=== PATIENT | male | born 1980 | race Two or more races ===

== ENCOUNTER 2025-09-01 09:02 | Outpatient (AMB) | payer MEDICARE, MEDICAID, SELFPAY ==
--- NOTE | 2025-09-01 09:10 | A.OFFPC_ITS ---
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 Transferring care from [facility]. Medical records have been requested and have received. Health And Physical Education Teacher Required: No Funeral Car Chauffeur: Present Accompanied by: Mother Allergies thioridazine (From Mellaril) Allergy (Intermediate, Verified 09/01/25 09:46) Not effective ziprasidone (From Geodon) Allergy (Intermediate, Verified 09/01/25 09:46) Rash haloperidol (From Haldol) Adverse Reaction (Intermediate, Verified 09/01/25 09:46) Confusion quetiapine (From Seroquel) Adverse Reaction (Intermediate, Verified 09/01/25 09:46) combative risperidone (From Risperdal) Adverse Reaction (Intermediate, Verified 09/01/25 09:46) Confusion Medication List - Last Reconciled 09/01/25 by Tequila Xiong MD ascorbic acid (vitamin C) (Vitamin C With Jo Hips) 1,000 mg PO DAILY atorvastatin (Lipitor) 20 mg PO DAILY betamethasone dipropionate 0.05% appl topical clozapine 100 mg PO lamotrigine 75 mg PO DAILY lisinopril-hydrochlorothiazide 20-12.5 mg 2 tabs PO DAILY lorazepam 1 mg PO BEDTIME metformin 1,000 mg PO BID metoprolol succinate ER mg PO DAILY zinc 50 mg PO DAILY Tobacco use date assessed: 09/01/25 Dental Screening Dental Screen Date: 09/01/25 Did you have a dental visit in the last 12 months?: Yes Did you have a dental problem in the last 6 months where you did not have access to dental care?: No Was dental information given to patient?: Patient has dentist HPI HPI Comments History of Present Illness Details The patient is a 44 year old male with PMH of schizoaffective disease, gout, HTN, HLD, DM, overdose on prescription medicaiton presenting to establish primary care. He recently moved from [place] and had a prior primary care provider at the [facility] ([facility]). The patient has a history of schizoaffective disorder, bipolar type, diagnosed at age 19. He is followed by India Vu, a CPNP at [facility], for his psychiatric care. His psychiatric medications include clozapine, lorazepam, and lamotrigine, which was started two to three months ago for affective symptoms of anxiety and depression and has been effective. His medical history includes childhood hypertension, currently managed with two tablets of lisinopril-HCTZ 20-12.5 mg daily and metoprolol succinate 100 mg daily. He has a history of type 2 diabetes, which developed after starting Zyprexa, and is managed with metformin 1000 mg twice daily; his last HbA1c was 6.8%. He also has hypercholesterolemia treated with atorvastatin. Other medical history includes gout in the right great toe, with the last flare occurring about three months ago, which he treats with Tylenol. He has an unspecified skin condition on his hands that causes cracking and bleeding, for which he uses betamethasone cream as needed. The patient also has a history of metabolic syndrome. The patient has a significant history of medication overdose, including an overdose on hydroxyzine at age 20 and an intentional ingestion of 270 tablets of Tegretol at age 31, which required hospitalization and an induced coma. Due to this history, his mother keeps all his medications in a locked safe. He has no history of surgeries. His father recently from cardiovascular disease. [facility] Surgical History No pertinent past surgical history Family History (Reviewed 09/01/25 @ :00 by Tequila Xiong MD) Sister Mental health disorder Mother Mental health disorder Father Mental health disorder Social History (Reviewed 09/01/25 @ :00 by Tequila Xiong MD) Housing: House Alcohol intake: never Patient Tobacco Use Status: Never used Tobacco e-Cigarette/Vaping Use: Never Used Second Hand Smoke Exposure: No service: No Current occupational status: unemployed Cognitive needs: No Hearing needs: No Vision needs: Yes (Glasses) Questionnaire PHQ-9 Over the last 2 weeks, how often have you been bothered by any of the following problems? 1. Little interest or pleasure in doing things: more than half the days 2. Feeling down, depressed, or hopeless: nearly every day 3. Trouble falling or staying asleep, or sleeping too much: several days 4. Feeling tired or having little energy: not at all 5. Poor appetite or overeating: not at all 6. Feeling bad about yourself - or that you are a failure or have let yourself or your family down: more than half the days 7. Trouble concentrating on things, such as reading the newspaper or watching television: not at all 8. Moving or speaking so slowly that other people could have noticed. Or the opposite - being so fidgety or restless that you have been moving around a lot more than usual: not at all 9. Thoughts that you would be better off or of hurting yourself in some way: not at all Total score: 8 Depression Screening Interpretation: Positive (Follows with Psychiatry) Depression Screening Follow-up: In treatment Depression Screening Done: Yes Source: Developed by Drs. Ramos Rocha, Mellisa Jay, Sourav Hankins and colleagues, with an educational kaiser from [employer]. Thrive Questionnaire Date Thrive assessed: 07/17/25 I am a: Patient What is your living situation today?: I have a steady place to live Within the past 12 months, did the food you bought not last and you didn't have the money to get more?: Never true Within the past 12 months, did you worry whether your food would run out before you got money to buy more?: Never true Do you have trouble paying for medicines?: No Do you have trouble getting transportation to medical appointments?: No Do you have trouble paying your heating and electricity bill?: No Do you have trouble taking care of your child, family member or friend?: No Do you have trouble with day-to-day activities such as bathing, preparing meals, shopping, managing finances, etc.?: No Are you currently unemployed and looking for a job?: Yes Are you interested in more education?: No Currently or been in a relationship where the following occur: No concerns reported THRIVE Score: 0 AUDIT C Alcohol Use Questionnaire (AUDIT-C) 1. How often do you have a drink containing alcohol?: Never Total Score: 0 MORGAN-7 AMB Questionnaire MORGAN-7 Date MORGAN - 7 assessed: 09/01/25 Feeling nervous, anxious, or on edge: 0 = Not at all Not being able to stop or control worryin = Not at all Worrying too much about different things: 0 = Not at all Trouble relaxin = Not at all Being so restless that it is hard to sit still: 0 = Not at all Becoming easily annoyed or irritable: 0 = Not at all Feeling afraid as if something awful might happen: 0 = Not at all Total MORGAN-7 score (0-4 normal; 5-9 mild; 10-14 moderate; 15-21 severe): 0 Source: Developed by Drs. Ramos Rocha, Mellisa Jay, Sourav Hankins and colleagues, with an educational kaiser from [employer]. Review of Systems Const Details: As per HPI. Physical exam (Primary Care) Vital Signs: Last Vital Signs Temp 97.3 F 09/01/25 09:11 Pulse 99 09/01/25 09:11 BP 120/64 09/01/25 09:11 Pulse Ox 98 09/01/25 09:11 Oxygen Delivery Method Room Air 09/01/25 09:11 BMI result Body Mass Index 36.3 Tobacco/Smoking Status: Tobacco use Status Tobacco use date assessed 09/01/25 09/01/25 09:14 Patient Tobacco Use Status Never used Tobacco 09/01/25 09:14 e-Cigarette/Vaping Use Never Used 09/01/25 09:14 PHQ-9: PHQ-9 Score PHQ-9: Total score 8 09/01/25 09:58 Depression Screening Interpretation: Positive (Follows with Psychiatry) Depr ession Screening Follow-up: In treatment Thrive Assessment: Date of Thrive Assessment Date Thrive assessed 07/17/25 09/01/25 09:14 Currently or been in a relationship where the following occur: No concerns reported Const Other: Pertinent findings are in BOLD GENERAL APPEARANCE NAD, activity normal for age, well developed/ well nourished, no cyanosis, pallor, or diaphoresis. EYES lids/conjunctiva normal. EARS/NOSE/THROAT Mucous membranes moist, nares normal, lips/teeth normal uvula midline without oral pharyngeal erythema, exudate or swelling TMs normal bilaterally. No lymphangitis/lymphedema. HEAD/NECK normocephalic atraumatic, no facial trauma, neck is supple. RESPIRATORY respiratory effort normal, speaks in full sentences, no tripod position, no accessory muscle use. Lungs clear to auscultation without rhonchi, wheezes, rales CARDIAC Regular rate and rhythm, no edema. ABDOMINAL Soft, ND/NT. No evidence of fluid wave. No pulsatile masses on exam, rebound tenderness, Boston sign or pain over Mcburney's point. MUSCLES/EXTREMITIES No abnormal range of motion, no swelling. SKIN Warm, pink and dry. No rashes, dermatoses, petechiae or lesions. NEUROLOGICAL Speech is clear and appropriate. Normal level of consciousness. Gait and coordination are normal. 5/5 strength in all extremities. PSYCH Normal mood and affect. Judgement/competence is appropriate Results AMB Hemoglobin A1c AMB Hemoglobin A1c 6.8 % Last Edit by MARIA E Tomlin on 09/01/25 09:52 Results Reviewed Results Reviewed: Laboratory Last Values Hgb A1c (Clinic) 6.8 % (4.0-6.0) H 09/01/25 09:39 Coding Level of Care Code New Pt Level 4 (41516) Diagnoses Type 2 diabetes mellitus without complication, without long-term current use of insulin E11.9 Diabetes mellitus type: type 2 Diabetes mellitus termite control service representative insulin use: without fpc use Diabetes mellitus complication status: without complication Primary hypertension I10 Hypertension type: primary hypertension Schizoaffective disorder F25.9 Encounter to establish care Z76.89 Gout M10.9 HLD (hyperlipidemia) E78.5 History of drug overdose Z91.89 Dermatitis L30.9 Time Spent (min) 45 Assessment & Plan Assessment & Plan (1) Diabetes mellitus: Code(s): E11.9 - Type 2 diabetes mellitus without complications Category: Medical Qualifiers: Diabetes mellitus type: type 2 Diabetes mellitus termite control service representative insulin use: without fpc use Diabetes mellitus complication status: without complication Qualified Code(s): E11.9 - Type 2 diabetes mellitus without complications Plan: - The patient's HbA1c is 6.8%, which is within the goal of less than 7%. - Continue metformin 1000 mg twice daily. - Provided counseling on dietary modifications, including reducing sugar and carbohydrate intake. - A referral to podiatry will be placed for a comprehensive foot exam. - The patient was advised to establish care with an enterprise records analyst for an annual eye exam. - Ordered fasting labs to be drawn before the next follow-up visit. (2) HTN (hypertension): Code(s): I10 - Essential (primary) hypertension Category: Medical Qualifiers: Hypertension type: primary hypertension Qualified Code(s): I10 - Es sential (primary) hypertension Plan: - The patient's blood pressure is controlled at 120 systolic on his current regimen. - Plan to reduce metoprolol succinate from 100 mg to 50 mg daily. - Continue lisinopril-HCTZ 20-12.5 mg, two tablets daily. - Advised patient's mother to monitor his blood pressure at home three times per week. - Discussed the risk of rebound effects if metoprolol is stopped abruptly. (3) Schizoaffective disorder: Code(s): F25.9 - Schizoaffective disorder, unspecified Category: Medical Plan: - The patient will continue psychiatric care under his CPNP, India Vu, wh o manages his clozapine, lamotrigine, and lorazepam. - Recent addition of lamotrigine has been effective for his anxiety and depression. (4) Encounter to establish care: Code(s): Z76.89 - Persons encountering health services in other specified circumstances Category: Medical Plan: - Will assume primary care for the patient and take over management of his medical prescriptions including atorvastatin, lisinopril/HCTZ, metoprolol, and metformin. - Coordinated care will continue with his psychiatric nurse practitioner, India Vu. - Instructed the patient and his mother to set up an account on the patient portal. - Plan to follow up in 3 months. Patient's Past, surgical, medical, family history was reviewed. General labs including CBC, CMP, Lipid panel, TSH, A1C were ordered. Medications refilled. Recent labs, imaging, documents, chart reviewed. - Rest of general health maintenance will be addressed during PE. (5) Gout: Code(s): M10.9 - Gout, unspecified Category: Medical Plan: - The patient experiences infrequent flares, with the last episode occurring approximately three months ago. - Will monitor for now without initiating prophylactic therapy. - Advised the patient to make an appointment if another gout flare occurs. (6) HLD (hyperlipidemia): Code(s): E78.5 - Hyperlipidemia, unspecified Category: Medical Plan: - Will take over prescribing atorvastatin and provide a refill. - Discussed dietary changes to help manage cholesterol. - Repeat lipid panel ordered. (7) History of drug overdose: Code(s): Z91.89 - Other specified personal risk factors, not elsewhere classified Category: Medical Plan: - The patient has a significant history of intentional medication overdose. - Will continue the current safety plan, with the patient's mother storing all medications in a locked safe. (8) Dermatitis: Code(s): L30.9 - Dermatitis, unspecified Category: Medical Plan: - The patient currently uses betamethasone cream for cracking skin on his hands, which was previously evaluated by a advertising supervisor. - Will provide a prescription for betamethasone cream to continue as-needed use. Plan I introduced myself to the patient and his mother and established myself as his new primary care physician. We discussed that I would take over prescribing his medical medications, including atorvastatin, lisinopril/HCTZ, metformin, and metoprolol. I reviewed his hypertension management and proposed a plan to reduce his metoprolol succinate dose from 100 mg to 50 mg daily, with home blood pressure monitoring to ensure continued control. I emphasized the importance of not stopping beta-blockers abruptly due to the risk of rebound tachycardia. Regarding his diabetes, I noted that his recent HbA1c of 6.8% is at goal. I recommended continuing metformin and reinforced dietary counseling. I also advised referrals for routine diabetic foot and eye examinations. We discussed his history of infrequent gout flares and decided to monitor for now, with instructions to schedule an appointment if a flare occurs. The patient will continue psychiatric care with his current CPNP. I addressed the technical issue sending prescriptions to his pharmacy and will work to resolve it, with a plan to switch pharmacies if necessary. I recommended setting up the patient portal and scheduled a follow-up visit in three months with fasting labs to be done beforehand. Orders: Orders AMB Hemoglobin A1c Today Z13.9 - Encounter for screening, unspecified Lipid Panel Today Z76.89 - Persons encountering health services in other specified circumstances TSH reflex Free T4 Today Z76.89 - Persons encountering health services in other specified circumstances UA and rflx microscopic Today Z76.89 - Persons encountering health services in other specified circumstances Comprehensive [place]. Panel Fast Today Z76.89 - Persons encountering health services in other specified circumstances Complete Blood Count no Diff Today Z76.89 - Persons encountering health services in other specified circumstances Hepatitis C Antibody Reflex Today Z76.89 - Persons encountering health services in other specified circumstances HIV Ab/Ag Today Z76.89 - Persons encountering health services in other specified circumstances Hemoglobin A1c Today Z76.89 - Persons encountering health services in other specified circumstances
[2025-09-01 09:11] VITALS: BP 120/64; PULSE 99; TEMP 36.3; O2SAT 98; BMI 36.3
== END 2025-09-01 10:14 | disposition home or self-care (01) ==
LOC: HO.HMCH 09:03
PROVIDERS: Visit Provider Internal Medicine
DX: E11.620 Type 2 diabetes mellitus with diabetic dermatitis (principal); I10 Essential (primary) hypertension; E11.69 Type 2 diabetes mellitus with other specified complication; E78.5 Hyperlipidemia, unspecified; Z13.9 Encounter for screening, unspecified

== ENCOUNTER → 2025-09-01 09:02 | Outpatient (BNVA) | payer MEDICARE, MEDICAID, SELFPAY | PROVIDERS: Visit Provider Internal Medicine | DX: Z76.89 Persons encountering health services in other specified circumstances (principal); E11.9 Type 2 diabetes mellitus without complications; I10 Essential (primary) hypertension; F25.9 Schizoaffective disorder, unspecified; M10.9 Gout, unspecified; E78.5 Hyperlipidemia, unspecified; Z91.89 Other specified personal risk factors, not elsewhere classified; L30.9 Dermatitis, unspecified | CPT/HCPCS: 83036; 96127; 99202 ==